=== PATIENT | female | born 1980 | race Caucasian/White ===

== ENCOUNTER → 2020-01-30 11:56 | Outpatient (CLI) | payer BC, SELFPAY ==
[2020-01-31 20:26] LABS: COVID19 Sendout Not Detected (Not Detect)
== END ==
PROVIDERS: Visit Provider Physician Assistant
DX: Z01.812 Encounter for preprocedural laboratory examination (principal)
CPT/HCPCS: 87635

== ENCOUNTER 2020-02-02 10:04 | Day surgery (SDC) | payer BC, SELFPAY ==
[2020-01-31 10:09] VITALS: BMI 18.6
[2020-02-02] VITALS (9 sets, daily range): BP systolic 102–127; BP diastolic 63–86; PULSE 61–92; RESP 11–18; TEMP 36.4–37; O2SAT 98–100; BMI 18.3
--- NOTE | 2020-02-02 | PATH_ITS ---
Note [facility] Accession Number: [id number] TESTS RESULT FLAG UNITS REF RANGE LAB Clinician Provided Cytology Information No. of containers..01 Other (Miscellaneous) PELVIC WASHINGS DIAGNOSIS: 01 PELVIC WASHINGS NEGATIVE FOR MALIGNANT CELLS. COMMENT: The specimen is composed of mesothelial cells and chronic inflammatory cells. Pathologist ICD10: 01 N83.209 Alisia Granger MD, Pathologist NPI- [id number] Darrin Loaiza, Manual Writer ([facility]) 01 35 CC, YELLOW, CLEAR RECEIVED: FRESH IN ORANGE CAP CONTAINER. /VDU 02/03/2020 1011 Local FLAG LEGEND: L-Low Normal,H-High Normal,LL-Alert Low,HH-Alert High <-Panic Low,>-Panic High,A-Abnormal,AA-Critical Abnormal Performed at: 01 =Z [facility] [address], [place] [address] Elio Caal MD, Performed at: 01 [facility] [address], [place], [place] [id number] MD Elio Caal MD Phone: [phone]
--- NOTE | 2020-02-02 10:52 | PM.PREOP ---
Pre-operative Note COVID-19 COVID-19 status: Negative Result date/Date tested (Pos, Neg/Pending): 01/30/20 Interval Note History & Physical reviewed/Exam performed by Physician: Yes Changes to H&P: No
--- NOTE | 2020-02-02 10:53 | P.HPOB_ITS ---
History of Present Illness History of Present Illness Reason for admission: pelvic mass (Right cystic structure likely cystadenoma of the right ovary) Narrative: Kareen Darnell is a 39 year old female admitted for removal of the right pelvic cystic structure PFSH Family History (Updated 09/21/16 @ 00:00 by Conversion Provider) Father Age: 62 Essential hypertension Social History (Updated 10/27/17 @ 18:54 by Radha Jara) number of children: 2 household members: spouse and children pets and animals: No education level: college occupational status: employed bautista/scientologist: [employer] leisure activities: other other: Outdoor activities, hiking, walking, seatbelt use: always helmet use: Yes water heater temp set < 120 deg: Yes working smoke detector in home: Yes fire extinguisher in home: Yes carbon monox detector in home: Yes firearms in home: Yes firearms unloaded and locked: Yes Smoking Status: Never smoker alcohol intake: current substance use type: does not use well-balanced diet: daily or most days daily servings fruits/veg: other caffeine: Yes (1-2 caffeine drinks per day) eating out: rarely or never Type(s) of exercise: walking and other frequency: 3-4 times per week duration: 30-45 minutes/day additional social history: Occupation: RN Meds Home Medications and Allergies Home Medications Medication Instructions Recorded Confirmed Type cholecalciferol (vitamin D3) 50 mcg PO DAILY 02/02/20 02/02/20 History [Vitamin D3] omega-3 fatty [id number] 1 cap PO DAILY 02/02/20 02/02/20 History Allergies Allergy/AdvReac Type Severity Reaction Status Date / Time No Known Allergies Allergy Uncoded 02/02/20 10:25 Review of Systems Review of Systems Narrative: Patient has some mild right lower quadrant pain. She is still post . No other concerns. ROS: Yes All systems reviewed with the patient and are negative except as otherwise documented Exam Vital Signs (past 8 hours): - 02/02/20 10:27 Temperature 98.3 F Pulse Rate 70 Respiratory Rate 16 Blood Pressure 127/86 Pulse Oximetry 100 Oxygen Delivery Method Room Air Narrative Exam Narrative: HEENT exam within normal limits. Lungs are clear to auscultation and percussion. Heart is regular rate and rhythm no S3-S4 or murmurs. Abdomen is soft with palpable right lower quadrant mass that is mildly tender. Extremities without edema and nontender. Before she was found to have a right adnexal cyst was found to be 5 cm, at her 20 week anatomy scan the cyst was noted to be 7.9 cm, and the cyst measured 9.2 x 5.9 x 11.6 cm. On 12/02/2019 the cyst measured 9.94 x 7.45 x 7.72 cm. Consent form was reviewed with the patient. Risk of damage to bowel, bladder,and ureter that could require opening abdomen to repair or additional surgery discussed. Small risk of infection. Small risk for bleeding enough to require blood transfusion. If the tumor turns out to be cancer she will need additional surgery. Consent form signed. Postop instructions reviewed. Assessment & Plan Assessment and plan (1) Right ovarian cyst: Status: Acute Assessment & Plan narrative: Patient with enlarging right adnexal cyst thought to be a serous cystadenoma for removal which probably will require removing the ovary.
--- NOTE | 2020-02-02 11:28 | SUR.OPER ---
Lithotomy on padded OR bed, head on pillow, arms secured on padded arm boards at <90 degrees abduction. Legs secured in padded yellow fins stirrups.
[2020-02-02] MEDS: ACETAMINOPHEN IV 1,000 MG/100 ML VIAL 400 MG IV (11:32)
[2020-02-02] MEDS: BUPIVACAINE 0.5% W/ EPI (PF) 30 ML VIAL INJ (11:41)
--- NOTE | 2020-02-02 12:00 | SUR.OPER ---
GLASSES IN LABELED BAG TO PACU WITH PATIENT
--- NOTE | 2020-02-02 12:08 | PM.OP.1 ---
Operative Date/Time/Diagnoses Date of procedure: 02/02/20 Time of procedure: 12:08 Pre-op diagnosis: right adenexal cyst Post-op diagnosis: same (Right ovarian likely serous cystadenoma) Procedure & Clinicians Procedure: Laparoscopic Right salpingo oophorectomy Same procedure as scheduled: Yes Indications: Enlarging right adnexal cyst Surgeon: Sheri Mooney Click Yes if Unassisted: Yes Anesthesia Type: General Operative Notes Findings: Large right ovarian cyst that had clear fluid inside with normal intra-abdominal contents Closure Type: primary Specimen(s): other (Right ovary and tube) Estimated Blood Loss (mL): 10 Blood products transfused: none Procedure in detail: Patient was brought to the operating room where she underwent general anesthesia. She was placed in low yellowfin stirrups and prepped and draped in usual sterile fashion. Pulsatile stockings were in place and functional. Warming was with blankets. A single-tooth tenaculum was placed on the anterior lip of the cervix and the cervix dilated to #6 Hegar dilator. The Marni uterine manipulator was placed and balloon inflated with 3 mL of air. The area of the incisions were injected with half percent Marcaine with epinephrine. An incision was made in the umbilicus with a scalpel and carried down the fascial layer with blunt dissection. The fascia was incised transversely and held with 0 Vicryl sutures x2. The perineum was entered bluntly and the Redd cannula was placed in the abdomen and the abdomen insufflated with CO2. Did not appear to be any damage with placement of the trocar. 2 5 mm trochars were placed in the right and left lower quadrant under direct visualization after incising the skin. There did not appear to be any damage with placement of the trocars. Cell washings were taken. The right infundicular ligament was cauterizing and cut with the PK generator. Sequential bites taken along the broad ligament hugging the ovary. The utero-ovarian ligament was cauterized and cut. The fallopian tube was cauterized cut at the fundus. This freed the tube and ovary without spillage. The tube and ovary placed in a Endo-Catch bag and brought up to the umbilical incision. The cyst was drained of clear fluid between 300 and 400 cc allowing removal of the remaining tissue through the incision. Adequate hemostasis was noted. The CO2 was allowed to escape from the abdomen. The trochars were removed. The fascial layer was closed with the prior placed 0 Vicryl sutures. Skin was closed with 4-0 monocryl. The patient went to recovery room in good condition. Cell washings and the right tube and ovary were sent to pathology. Counts of instruments and sponges were correct. Complications: none Post-operative Condition: stable Disposition: same day surgery Plan for aftercare: Home when awake and stable. Treatment and follow-up based on pathology results
--- NOTE | 2020-02-02 16:02 | SUR.PHASEII ---
1555 Spouse called, he had gone to [facility] to merchandise pickup/receiving associate her pain med and there was nothing sent in. Attempted to call Dr. prescott, left voicemail. Called the spouse back and let him know that I had left a message with the office. Called the spouse back and let him know that I had left a voicemail and gave him the office phone number.
== END 2020-02-02 14:40 | disposition home or self-care (01) ==
PROVIDERS: PCP Nurse Practitioner Family; Referring Provider Specialist; Visit Provider Specialist
PROC: (CPT 58661; principal; 2020-02-02 11:15)
DX: N83.201 Unspecified ovarian cyst, right side
CPT/HCPCS: 58661; J0131; J1100; J1885; J2250; J2405; J2704; J3010